=== PATIENT | female | born 2000 | race Caucasian/White ===

== ENCOUNTER 2021-05-04 09:27 | Emergency (ER) | payer BC, SELFPAY ==
[2021-05-04 09:44] VITALS: BP 112/75; PULSE 74; RESP 16; TEMP 36.4; O2SAT 100
--- NOTE | 2021-05-04 10:08 | ED.FEMALEGU ---
HPI - Female Genitourinary General Chief complaint: Skin/Abscess/Foreign Body Stated complaint: Bumps on vagina Time Seen by Provider: 05/04/21 10:08 Source: patient and RN notes reviewed Mode of arrival: ambulatory Limitations: no limitations History of Present Illness HPI Narrative: 20-year-old female presents to the [facility] with complaints of bumps to her vagina. Patient has no concerns for an STD nor , states she has never had sex. MD elicited complaint: genital rash Related Data Allergies Allergy/AdvReac Type Severity Reaction Status Date / Time SEASONAL ALLERGENS Allergy Uncoded 12/20/12 18:35 Review of Systems Review of Systems: All systems reviewed & are unremarkable except as noted in HPI and below Constitutional: Constitutional: Reports no additional constitutional complaints Eyes: Eyes: Reports no additional eye complaints ENT: Reports system reviewed and no additional complaints, except as documented Cardiovascular: Cardiovascular: Reports no additional cardiovascular complaints Respiratory: Respiratory: Reports no additional respiratory complaints Gastrointestinal: Gastrointestinal: Reports no additional gastrointestinal complaints Genitourinary: Genitourinary: Reports as per HPI, Reports genital lesions and Denies vaginal discharge Musculoskeletal: Musculoskeletal: Reports no additional musculoskeletal complaints Integumentary/Breasts: Skin/Breast: Reports system reviewed and no additional complaints, except as docu Neurologic: Reports system reviewed and no additional complaints, except as documented Psychiatric: Psychiatric: Reports no additional psychiatric complaints Allergic/Immunologic: Allergic/Immunologic: Reports no additional allergic/immunologic complaints PMFSH Past Medical History Medical History (Updated 05/04/21 @ 10:17 by Kim Galeano) No significant family history No significant medical problems Surgical History Surgical History (Updated 05/04/21 @ 10:09 by Kim Galeano) No significant past surgical history Social History Social History (Updated 05/04/21 @ 10:09 by Kim Galeano) Living arrangements: with family Occupation/Education: student Gender identity (if verbalized by the patient): Female Comments At the time of my signature, I reviewed and agree with the nursing past medical, surgical, social, and family history. There is no relevant family history pertinent to the patient complaint. Exam Const: General: healthy appearing, no acute distress and alert Nutritional Appearance: well nourished Orientation/consciousness: patient oriented x3 Limitations: no limitations HENMT: Head: normal to inspection Ears: external ears normal, TM's normal bilaterally and EAC's normal Eyes: Pupils: Equal, round and reactive pupils present Neck: Neck: normal visual inspection, no lymphadenopathy and no meningeal signs Chest: Chest palpation & inspection: normal inspection of the chest and abnormal inspection of the chest Resp: Effort & Inspection: normal respiratory effort and no use of accessory muscles Auscultation: clear to auscultation bilaterally, no crackles, no rales, no rhonchi and no wheezes Cardio: Rate: regular rate Rhythm: regular rhythm GI: GI Palp: Yes Soft to palpation and No Tenderness to palpation present (GI) : General: Yes no CVA tenderness External Female Exam: No erythema, No external swelling and lesion (Right labia small ingrown hair, draining white pus) Speculum Exam - Vagina: normal vaginal discharge OB/external & speculum: Deferred OB/external & speculum exam Other: Chaperoned by [employer] GR[employer] Back/Spine/Pelvis: Back: no CVA tenderness Skin: General skin exam: normal color Rashes: no rashes Neuro: General: patient oriented x3, moves all extremities, no meningeal signs and no focal motor deficits Speech: normal speech Gait exam (Neuro): Normal gait present Extrem: General: normal to inspection and no pedal edema
--- NOTE | 2021-05-04 10:18 | PC.NURSE ---
1012- wound culture taken from small abscess that was already draining on own to the right lower labia majora.
== END 2021-05-04 10:30 | disposition home or self-care (01) ==
PROVIDERS: Emergency Provider Nurse Practitioner; PCP Family Medicine
DX: N83.00 Follicular cyst of ovary, unspecified side (principal)
CPT/HCPCS: 81003; 81025; 87070; 87075; 87076; 87205; 99213; G0463

== ENCOUNTER 2022-06-17 10:26 | Emergency (ER) | payer BC, SELFPAY ==
--- NOTE | ~2022-06-17 | XR_ITS ---
EXAMINATION: XR finger 5th RT min 2V INDICATION: Right fifth finger pain, initial encounter TECHNIQUE: Four views of the right fifth finger are obtained. COMPARISON: None available FINDINGS: There is an acute, traumatic, comminuted tuft fracture of the fifth distal phalanx. Given t he position of the fracture, open fracture is not excluded. The joint spaces are normal. No additiona l fracture is identified. There is soft tissue swelling of the fifth finger. IMPRESSION: 1. Acute comminuted tuft fracture of the fifth distal phalanx, possibly open. Reviewed, dictated and finalized at location B.
[2022-06-17 10:36] VITALS: BP 113/63; PULSE 86; RESP 18; TEMP 37.2; O2SAT 100
[2022-06-17 10:40] VITALS: BP 113/63; PULSE 86; RESP 18; TEMP 37.2; O2SAT 100
--- NOTE | 2022-06-17 10:51 | ED.UPPEXIN ---
HPI - Extremity Injury (Upper) General Chief Complaint: Extremity Injury, Upper Stated Complaint: Right Hand Pinky Finger Pain Time Seen by Provider: 06/17/22 10:51 Source: patient, RN notes reviewed and old records reviewed Mode of arrival: ambulatory Limitations: no limitations History of Present Illness HPI narrative: 21-year-old female presents to the [facility] after closing her right fifth finger in a car door yesterday. Put crazy glue all over the distal portion of her finger. Bleeding is controlled. Related Data Allergies Allergy/AdvReac Type Severity Reaction Status Date / Time SEASONAL ALLERGENS Allergy Other Uncoded 06/17/22 10:35 Review of Systems Review of Systems: All systems reviewed & are unremarkable except as noted in HPI and below Constitutional: Constitutional: Reports no additional constitutional complaints, Denies chills and Denies fever(s) Eyes: Eyes: Reports no additional eye complaints ENT: Reports system reviewed and no additional complaints, except as documented Cardiovascular: Cardiovascular: Reports no additional cardiovascular complaints Respiratory: Respiratory: Reports no additional respiratory complaints Gastrointestinal: Gastrointestinal: Reports no additional gastrointestinal complaints Musculoskeletal: Musculoskeletal: Reports as per HPI Integumentary/Breasts: Skin/Breast: Reports system reviewed and no additional complaints, except as docu Neurologic: Reports system reviewed and no additional complaints, except as documented Psychiatric: Psychiatric: Reports no additional psychiatric complaints Allergic/Immunologic: Allergic/Immunologic: Reports no additional allergic/immunologic complaints PMF Past Medical History Medical History (Updated 06/17/22 @ 11:14 by Kim Galeano APRN) No significant family history No significant medical problems Surgical History Surgical History No significant past surgical history Social History Social History Gender identity (if verbalized by the patient): Female Comments At the time of my signature, I reviewed and agree with the nursing past medical, surgical, social, and family history. There is no relevant family history pertinent to the patient complaint. Exam Const: General: healthy appearing, no acute distress, alert and well nourished Nutritional Appearance: well nourished Orientation/consciousness: patient oriented x3 Limitations: no limitations HENMT: Head: normal to inspection Ears: external ears normal Eyes: General: appearance normal, both eyes and all related structures Pupils: Equal, round and reactive pupils present Neck: Neck: normal visual inspection, no lymphadenopathy and no meningeal signs Chest: Chest palpation & inspection: normal inspection of the chest Resp: Effort & Inspection: normal respiratory effort and no use of accessory muscles Auscultation: clear to auscultation bilaterally, no crackles, no rales, no rhonchi and no wheezes Cardio: Rate: regular rate Rhythm: regular rhythm Skin: General skin exam: normal color Rashes: no rashes Other: Wounds underneath large amounts of greasy glue dorsal aspect fifth finger right hand Neuro: General: patient oriented x3, moves all extremities, no meningeal signs and no focal motor deficits Cranial nerves: Yes Equal, round and reactive pupils present Speech: normal speech Gait exam (Neuro): Normal gait present Extrem: General: normal to inspection, full ROM and capillary refill normal Right upper extremity: Extremity exam: right hand abnormal to inspection, normal capillary refill, neuromotor exam normal, neurosensory exam normal, tenderness of the 5th digit at the nailbed; not at the distal phalanx, vascular exam radial pulse present, swelling of the 5th digit at the distal phalanx and laceration (Possible laceration, entire distal aspect of fi
== END 2022-06-17 11:05 | disposition home or self-care (01) ==
PROVIDERS: Emergency Provider Nurse Practitioner; PCP Nurse Practitioner Family
DX: S62.636B Displaced fracture of distal phalanx of right little finger, initial encounter for open fracture (principal); X58.XXXA Exposure to other specified factors, initial encounter
CPT/HCPCS: 29130; 73140; 99214; G0463

== ENCOUNTER 2023-02-28 22:07 | Emergency (ER) | payer BC, OTHER, SELFPAY ==
[2023-02-28 22:09] VITALS: BP 122/55; PULSE 97; RESP 14; TEMP 36.4; O2SAT 100
[2023-02-28 23:27] VITALS: BP 99/70; PULSE 87; RESP 14; O2SAT 100
[2023-02-28 23:46] VITALS: BP 120/79
--- NOTE | 2023-03-01 00:23 | ED.GENADULT ---
HPI - General Adult General Chief complaint: Unspecified Stated complaint: abnormal period Time Seen by Provider: 02/28/23 23:31 History of Present Illness HPI narrative: This is a 22-year-old female presenting to ED with a chief complaint of an abnormal menses. Patient believes her last normal period was early January. She had unprotected sex in the mid January. She is then taken several negative test but thinks that she is having symptoms. The symptoms she is experiencing are crampy lower abdominal pain and spotting. Patient is supposed to be starting her period today. patient has no concern for STDs. Related Data Allergies Allergy/AdvReac Type Severity Reaction Status Date / Time SEASONAL ALLERGENS Allergy Other Uncoded 02/28/23 23:34 [facility] Past Medical History Medical History No significant family history No significant medical problems Surgical History Surgical History No significant past surgical history Social History Social History Living arrangements: with family Occupation/Education: student Gender identity (if verbalized by the patient): Female Exam Narrative: APPEARANCE: No apparent distress. Head: atraumatic. EYES: EOMI, NOSE: Atraumatic NECK: Trachea midline RESPIRATORY: No increased rate of breathing CARDIOVASCULAR: RRR, ABDOMINAL: Soft nontender no guarding or rebound MUSCULOSKELETAl: No obvious deformities NEURO: Alert. Moving 4/4 extremities SKIN:: Warm, dry. Normal color PSYCHIATRIC: Normal affect Course Vital Signs Vital signs: Vital Signs Temperature 97.6 F 02/28/23 22:09 Pulse Rate 97 02/28/23 22:09 Respiratory Rate 14 02/28/23 22:09 Blood Pressure 122/55 L 02/28/23 22:09 Pulse Oximetry 100 02/28/23 22:09 Temperature 97.6 F 02/28/23 22:09 Pulse Rate 87 02/28/23 23:27 Respiratory Rate 14 02/28/23 23:27 Blood Pressure 120/79 02/28/23 23:46 Pulse Oximetry 100 02/28/23 23:27 Oxygen Delivery Room Air 02/28/23 23:27 Medical Decision Making MDM Narrative Medical decision making narrative: -Presentation: 22-year-old female presenting with abdominal cramping and a time motion analyst period than usual. Concerned she is . -DDX includes but is not limited to: Normal menses, dysfunctional uterine bleeding, implantation bleeding, -Co-morbidities complicating care: anxiety -Social determinants of health: a patient works at a [employer] in a [employer], lives with her mother -External Chart Review: None -Hx from independent Sources: none -Independent interpretation of studies: negative -Discussion of Management/Consultants: none -Dx tests considered but not ordered: STD testing-patient declined -Procedures: none -Interventions: none -Shared decision making / Disposition: patient's pain is likely due to her regular menstruation. Patient has been discharged. -RX Vital Signs Vital Signs: Vital Signs Temperature 97.6 F 02/28/23 22:09 Pulse Rate 97 02/28/23 22:09 Respiratory Rate 14 02/28/23 22:09 Blood Pressure 122/55 L 02/28/23 22:09 Pulse Oximetry 100 02/28/23 22:09 Temperature 97.6 F 02/28/23 22:09 Pulse Rate 87 02/28/23 23:27 Respiratory Rate 14 02/28/23 23:27 Blood Pressure 120/79 02/28/23 23:46 Pulse Oximetry 100 02/28/23 23:27 Oxygen Delivery Room Air 02/28/23 23:27 Lab Data Labs: UCG Bedside Result Negative Reference Range: Negative Discharge Plan Discharge Clinical Impression: Menstruation Patient Disposition: Home, Self-Care Condition: Stable Instructions: Antibiotic Form, Abnormal (Dysfunctional) Uterine Bleeding (ED) Additional Instructions: You were seen in
== END 2023-03-01 00:37 | disposition home or self-care (01) ==
PROVIDERS: Emergency Provider Emergency Medicine; PCP Nurse Practitioner Family
DX: N94.6 Dysmenorrhea, unspecified (principal)
CPT/HCPCS: 81025; 99283

== ENCOUNTER 2023-09-19 15:12 | Emergency (ER) | payer OTHER, BC, SELFPAY ==
--- NOTE | ~2023-09-19 | XR_ITS ---
EXAMINATION: XR knee LT min 4V DATE: 09/19/2023 16:28 INDICATION: Left knee injury. TECHNIQUE: 5 views of left knee were obtained. COMPARISON: None. FINDINGS: Bone alignment is normal. No fracture. Joint spaces are normal. No knee joint effusion. IMPRESSION: 1. No fracture. Reviewed, dictated and finalized at location E. STILL OPERATOR IMPRESSION: 1. No fracture.
[2023-09-19 15:32] VITALS: BP 116/70; PULSE 91; RESP 16; TEMP 36.8; O2SAT 100
[2023-09-19 15:38] VITALS: BP 116/70; PULSE 91; RESP 16; TEMP 36.8; O2SAT 100
--- NOTE | 2023-09-19 16:50 | ED.LOWEXIN ---
HPI - Extremity Injury (Lower) General Chief Complaint: Extremity Injury, Lower Stated Complaint: Left Knee Pain Time Seen by Provider: 09/19/23 16:50 Source: patient and RN notes reviewed Mode of arrival: ambulatory Limitations: no limitations History of Present Illness HPI Narrative: Patient presents today complaining of left knee pain. 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 Reports popping when she walks. Denies numbness or tingling in the leg or foot. Denies pain at rest, but pain and popping increase with ambulation. States she has not tried any [id number] treatment prior to arrival. Related Data Home Medications Medication Instructions Recorded Confirmed albuterol sulfate 90 mcg/actuation inhalation 09/19/23 aerosol inhaler Allergies Allergy/AdvReac Type Severity Reaction Status Date / Time SEASONAL ALLERGENS Allergy Other Uncoded 02/28/23 23:34 Review of Systems Review of Systems: CONSTITUTIONAL: Denies body aches, fever, chills, or sweats. EYES: Denies visual changes, redness, or discharge. ENT: Denies rhinorrhea, congestion, sore throat, or otalgia. CARDIOVASCULAR: Denies chest pain, palpitations, or edema. RESPIRATORY: Denies cough or dyspnea. GASTROINTESTINAL: Denies abdominal pain, nausea, vomiting, or diarrhea. GENITOURINARY: Denies dysuria or hematuria. SKIN: Denies rash, itching, or wounds. MUSCULOSKELETAL: Denies back pain, or myalgia.+ left knee injury NEUROLOGIC: Denies headache, numbness, tingling, or weakness. PSYCH: Denies depression or anxiety. [facility] Past Medical History Medical History No significant family history No significant medical problems Surgical History Surgical History No significant past surgical history Social History Social History Living arrangements: with family Occupation/Education: student Gender identity (if verbalized by the patient): Female Comments At time of signature, I have reviewed and agree with nursing past medical, surgical, social and family history unless otherwise noted. Please see nursing chart for further information. There is no relevant family history pertinent to the presenting complaint Exam Narrative: GENERAL: Well-appearing, well-nourished, and in no acute distress. HEAD: Normocephalic, atraumatic. EYES: EOMI. No redness or drainage. Conjunctivae normal. ENT: Mucous membranes pink and moist. NECK: Normal AROM. CHEST: No respiratory distress. Clear to auscultation. HEART: Regular rate and rhythm. No murmur appreciated. EXTREMITIES: left knee: Tenderness to the lateral joint line. No tenderness to the remainder of the knee. No edema noted. No erythema or ecchymosis noted. Distal sensation intact. Capillary refill normal. Full P ROM of the knee without pain or crepitus. SKIN: Warm, dry, no rash. Capillary refill normal. Normal skin turgor. NEURO: No focal deficits. Alert and oriented x3. Gait steady. PSYCH: Normal affect. No signs of depression or anxiety. Course Course Level of Care: Express Care Visit Vital Signs Vital signs: Vital Signs Temperature 98.2 F 09/19/23 15:32 Pulse Rate 91 09/19/23 15:32 Respiratory Rate 16 09/19/23 15:32 Blood Pressure 116/70 09/19/23 15:32 Pulse Oximetry 100 09/19/23 15:32 Oxygen Delivery Room Air 09/19/23 15:32 Temperature 98.2 F 09/19/23 15:38 Pulse Rate 91 09/19/23 15:38 Respiratory Rate 16 09/19/23 15:38 Blood Pressure 116/70 09/19/23 15:38 Pulse Oximetry 100 09/19/23 15:38 Oxygen Delivery Room Air 09/19/23 15:38 Reviewed MDM - Extremity Injury (Lower) MDM Narrative Medical decision making narrative: X-ray is negative. Discussed orthopedic follow-up if no impro
== END 2023-09-19 17:06 | disposition home or self-care (01) ==
PROVIDERS: Emergency Provider Nurse Practitioner; PCP Nurse Practitioner Family
DX: M25.562 Pain in left knee (principal)
CPT/HCPCS: 73564; 99213; G0463

== ENCOUNTER 2023-10-19 10:13 | Emergency (ER) | payer BC, SELFPAY ==
[2023-10-19 10:26] VITALS: BP 132/72; PULSE 82; RESP 16; TEMP 36.6; O2SAT 100
--- NOTE | 2023-10-19 10:27 | ECG_ITS ---
Measurements Intervals [place] Rate: 77 P: 41 TN: 151 QRS: 50 QRSD: 88 T: 19 QT: 352 QTc: 399 Interpretive Statements SINUS RHYTHM BASELINE ARTIFACT NORMAL ECG NO PREVIOUS ECG AVAILABLE FOR COMPARISON Electronically Signed On 10-19-2023 16:25:51 [employer]ISATION MANAGER by Horace Gould M.D.
--- NOTE | 2023-10-19 10:41 | ED.CHESTPAIN ---
HPI - Chest Pain General Chief Complaint: Chest Pain Stated Complaint: Chest Wall Pain Source: patient, RN notes reviewed and old records reviewed Mode of arrival: ambulatory Limitations: no limitations History of Present Illness HPI narrative: 22-year-old female presents to [facility] with complaint of left upper chest pain that started yesterday. Patient states pain is coming and going. Patient states was examined he is pointing their finger quickly into her chest. Patient denies cough, congestion, shortness of breath, dizziness, any other symptoms. Related Data Home Medications Medication Instructions Recorded Confirmed albuterol sulfate 90 mcg/actuation 2 puff inhalation DAILY 09/19/23 10/19/23 aerosol inhaler Allergies Allergy/AdvReac Type Severity Reaction Status Date / Time SEASONAL ALLERGENS Allergy Other Uncoded 10/19/23 11:08 Review of Systems Constitutional: Constitutional: Reports no additional constitutional complaints, Denies body ache(s), Denies chills, Denies fatigue, Denies fever(s) and Denies headache(s) Eyes: Eyes: Reports no additional eye complaints and Denies blurry vision ENT: Reports system reviewed and no additional complaints, except as documented, Denies vertigo, Denies dizziness, Denies ear discharge, Denies otalgia, Denies facial pain, Denies headache(s), Denies nasal congestion, Denies nasal discharge, Denies sinus pain, Denies sinus pressure and Denies sore throat Cardiovascular: Cardiovascular: Reports no additional cardiovascular complaints, Reports chest pain, Denies chest pain at rest, Denies rapid heart rate and Denies dyspnea Respiratory: Respiratory: Reports no additional respiratory complaints, Denies chest congestion, Denies cough, Denies pain on inspiration, Denies pain with cough and Denies dyspnea Gastrointestinal: Gastrointestinal: Denies abdominal pain, Denies diarrhea, Denies nausea and Denies vomiting Integumentary/Breasts: Skin/Breast: Denies rash Neurologic: Reports system reviewed and no additional complaints, except as documented, Denies vertigo, Denies dizziness and Denies headache(s) Endocrine: Endocrine: Denies fatigue PMFSH Past Medical History Medical History No significant family history No significant medical problems Surgical History Surgical History No significant past surgical history Social History Social History Living arrangements: with family Occupation/Education: student Gender identity (if verbalized by the patient): Female Comments At the time of my signature, I reviewed and agree with the nursing past medical, surgical, social, and family history. There is no relevant family history pertinent to the patient complaint. Exam Const: General: cooperative, healthy appearing, no acute distress and well nourished Nutritional Appearance: well nourished Orientation/consciousness: patient oriented x3 Limitations: no limitations HENMT: Head: normal to inspection and normocephalic Face/Nose/Sinus: normal facial exam Face and sinus: normal facial exam Mouth: Yes Normal oral and palatal mucosa present, Yes oropharynx normal and Yes moist mucous membranes Throat: tonsils normal, uvula midline and no uvular edema Eyes: General: appearance normal, both eyes and all related structures Sclera: sclerae normal Pupils: Equal, round and reactive pupils present Chest: Chest palpation & inspection: normal inspection of the chest, normal palpation of entire chest wall, no crepitus, not deferred, no tenderness and No rash Resp: Effort & Inspection: normal respiratory effort, able to speak in complete sentences, no audible wheezes, no cough, no respiratory distress and no retractions Auscultation: clear to auscultation bilaterally, no crackles, no rales, no rhonchi and no wheezes
== END 2023-10-19 10:55 | disposition home or self-care (01) ==
PROVIDERS: Emergency Provider Registered Nurse; PCP Family Medicine
DX: R07.89 Other chest pain (principal)
CPT/HCPCS: 93005; 99213; G0463

== ENCOUNTER 2025-08-05 14:40 | Emergency (ER) | payer BC, SELFPAY ==
--- NOTE | ~2025-08-05 | XR_ITS ---
EXAMINATION: XR hip LT 2V w AP pelvis, 08/05/2025 15:15 ADMINISTRATIVE ASSISTANT COORDINATOR HISTORY: no injury pain COMPARISON: No comparisons available. Findings: No acute fracture or malalignment. No significant degenerative changes. Soft tissues unremarkable. Impression: No acute fracture or malalignment. Reviewed, dictated and finalized at location P. NISTRATIVE ASSISTANT COORDINATOR Impression: No acute fracture or malalignment.
[2025-08-05 14:52] VITALS: BP 133/72; PULSE 77; RESP 18; TEMP 36.8; O2SAT 100
--- NOTE | 2025-08-05 15:07 | ED.EXTPRO ---
HPI - Extremity Problem General Chief complaint: Extremity Problem,Nontraumatic Stated complaint: pain in left leg/hip Time Seen by Provider: 08/05/25 15:08 Source: patient, RN notes reviewed and old records reviewed Mode of arrival: ambulatory Limitations: no limitations History of Present Illness HPI Narrative: 24 year old female who presents to [facility] care with complaints of left hip pain since Tuesday with no known injury. Patient reports no warmth or heat or redness to her left hip, no history of prior injury of left hip or pelvis.Patient states that pain stays in her left hip joint does not radiate anywhere, reports no pain to her back, buttock or any pain to her thigh. Patient reports that she was working on aisle reset on the [employer] when pain first stated, stated she had not lifted on anything heavy or moved in any unusual way. Pain was helped with heat and ice and Ibuprofen initially then it has not been effective. MD Complaint: other (left hip pain) Onset (ago): week(s) (started 3 days ago) Location: left and lower extremity (hip) Severity scale (1-10): 8 Quality: aching and other (soreness) Radiation: none Exacerbating factors: weight bearing, walking and other (some movements) Related Data Home Medications ?Medication ?Instructions ?Recorded ?Confirmed ?Last Taken ?Type albuterol sulfate 90 mcg/actuation 2 puff inhalation DAILY 09/19/23 10/19/23 Unknown History aerosol inhaler escitalopram oxalate 20 mg tablet mg 08/05/25 Unknown History sumatriptan succinate 100 mg tablet mg PO 08/05/25 Unknown History Allergies Allergy/AdvReac Type Severity Reaction Status Date / Time No Known Allergies Allergy Verified 08/05/25 15:09 Review of Systems Review of Systems: CONSTITUTIONAL: Denies fever, chills, or sweats. EYES: Denies visual changes, redness, or discharge. ENT: Denies rhinorrhea, congestion, sore throat, or otalgia. CARDIOVASCULAR: Denies chest pain, palpitations, or edema. RESPIRATORY: Denies cough or dyspnea. GASTROINTESTINAL: Denies abdominal pain, nausea, vomiting, or diarrhea. GENITOURINARY: Denies dysuria or hematuria. SKIN: Denies rash or itching. MUSCULOSKELETAL: Denies back pain,positive for localized left hip pain with no radiation of pain or any known injury, or myalgia. NEUROLOGIC: Denies headache, numbness, or weakness. PSYCHIATRIC: Reports history of anxiety or depression. All systems reviewed & are unremarkable except as noted in HPI and below PMFSH Past Medical History Medical History (Updated 08/06/25 @ 13:44 by Nasreen Jones APRN) Migraine Anxiety No significant family history Surgical History Surgical History (Updated 08/06/25 @ 13:45 by Nasreen Jones APRN) History of tonsillectomy and adenoidectomy Social History Social History Living arrangements: with family Occupation/Education: student Gender identity (if verbalized by the patient): Female Comments At time of signature, agree with nursing past medical, surgical, social and family history. There is no relevant family history pertinent to the presenting complaint Exam Narrative: GENERAL: Well-appearing, well-nourished, and in no acute distress. HEAD: Normocephalic, atraumatic. EYES: PERRLA and EOMI. ENT: Nares clear, no rhinorrhea or epistaxis. Mucous membranes moist. NECK: Supple.no lymphadenopathy CHEST: Clear to auscultation. No respiratory distress.SAO2 100% on room air HEART: Regular rate and rhythm. No murmur heard. Normal peripheral pulses. ABDOMEN: Soft, nontender, nondistended, normal active bowel sounds. EXTREMITIES: Normal range of motion. No edema. Localized pain to her left hip joint area with no known injury, increased pain verbalized with ambulation no radiation of pain, no pain in back buttocks or in thigh.Patient reports that pain increases with activity.gait steady SKIN: Warm, dry, no rash. NEURO: No focal deficits. Alert and oriented x3. Course Course Level of Care: Express Care Visit Vital Signs Vital signs: Vital Signs Temperature 36.8 C 08/05/25 14:52 Pulse Rate 77 08/05/25 14:52 Respiratory Rate 18 08/05/25 14:52 Blood Pressure 133/72 08/05/25 14:52 Pulse Oximetry 100 08/05/25 14:52 Oxygen Delivery Room Air 08/05/25 14:52 Temperature 36.8 C 08/05/25 14:52 Pulse Rate 77 08/05/25 14:52 Respiratory Rate 18 08/05/25 14:52 Blood Pressure 133/72 08/05/25 14:52 Pulse Oximetry 100 08/05/25 14:52 Oxygen Delivery Room Air 08/05/25 14:52 reviewed MDM MDM Narrative Medical decision making narrative: 24 year old female with left hip joint pain localized in hip area with no radiation of pain or any pain in back, buttocks or in left thigh with no known injury. Patient has no heat or redness to hip. X-ray findings no fracture or mal alignment or degenerative changes noted. At the time of visit patient is resting comfortably on the exam table. Patient appears to be nontoxic. Supportive measures were discussed with the patient and they voiced understanding discharge instructions and agrees to treatment plan. Return precautions reviewed and reasons to seek ED care reviewed. Differential Diagnosis Differential Diagnosis: Differential diagnostic considerations for extremity problems include sprain/strain, fracture, DVT, herpes zoster, gout, cellulitis, superficial thrombophlebitis, physiologic edema.bursitis??? Imaging Data My impression: no acute fracture or mal alignment, no degenerative changes of left hip Radiologist's impression: ITS Impressions Hip/Pelvis X-Ray 08/05/25 15:23 Impression: No acute 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 Findings: No acute fracture or malalignment. No significant degenerative changes. Soft tissues unremarkable. Impression: No acute fracture or malalignment. Reviewed, dictated and finalized at location P. AL LABORATORY WORKER Please be advised this is a medical document. It is intended for [id number] communication. It is written in medical language and may contain unfamiliar abbreviations or verbiage. Medical documents are intended to carry relevant information, facts as evident, and the clinical opinion of the practitioner at the time of the encounter. This report may have been done utilizing a voice recognition system. Attempts have been made to correct errors. However, there may be uncorrected grammatical, spelling, and recognition errors present. The file time of this note does not necessarily represent the time of service. Dictated By: Mervin Davis MD 08/05/25 1523 Signed By: <Electronically signed by Mervin Davis MD in OV> Critical Care Time Critical Care Time Critical Care Time: No Discharge Plan Discharge Clinical Impression: Hip pain, left Patient Disposition: Home Condition: Stable Instructions: Antibiotic Form, Hip Pain (ED) Additional Instructions: Tylenol for lesser pain or can take in between ibuprofen doses Ibuprofen regularly for the next 2-3 days for the inflammation continue ibuprofen 400-600 mg 4 times daily with food for the next 3 days prednisone 40 mg daily take with food for 5 days Follow-up with orthopedic surgeon if no improvement in pain Follow-up with PCP if further problems or concerns Ice to the area 20-30 minutes 4-6 times a day Elevate above heart If your symptoms persist, change or worsen significantly before you can contact your personal physician then please, without delay, go to the emergency department for further evaluation. Follow-up with PCP in 7-10 days or sooner if needed Follow up with PCP soon in regards to your blood pressure which is elevated above threshold for referral. Blood pressure above 120/80 may indicate pre-hypertension.133/72 Patient Language: Trinid[place] Prescriptions: New prednisone 20 mg tablet 40 mg PO DAILY 5 Days Qty: 10 0RF Rx Instructions: take with food in morning or early afternoon No Action sumatriptan succinate 100 mg tablet PO escitalopram oxalate 20 mg tablet albuterol sulfate 90 mcg/actuation HFA aerosol inhaler 2 puff INHALATION DAILY Follow-up/Referrals: Carolyn,Diana Euceda MD [Primary Care Provider] Time of Disposition: 15:40 Quality [place] Coma Scale Eyes: Open Verbal: Oriented and Alert Motor: Follows Commands [place] Coma Total Score: 15
== END 2025-08-05 15:46 | disposition home or self-care (01) ==
PROVIDERS: Emergency Provider Registered Nurse; PCP Family Medicine
DX: M25.552 Pain in left hip (principal); F41.9 Anxiety disorder, unspecified
CPT/HCPCS: 73502; 99213; G0463